=== PATIENT | male | born 1965 | race Caucasian/White ===

== ENCOUNTER 2018-01-24 19:11 | Outpatient (CLI) | payer BC, OTHER ==
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
== END 2018-01-24 19:12 | disposition home or self-care (01) ==
LOC: MADRAD 19:11
PROVIDERS: ATTEND Family Medicine
DX: R31.21 Asymptomatic microscopic hematuria (principal)
CPT/HCPCS: 74176